=== PATIENT | female | born 1940 | race Caucasian/White ===

== ENCOUNTER 2020-06-03 17:14 | Inpatient (IN) | payer MEDICARE ==
[~2020-06-03] VITALS: Ht 157.5 cm; Wt 71.3 kg
[2020-06-03 17:49] LABS: BASOPHILS % (AUTO) 0.5 % (0.0-5.0); EOSINOPHILS % (AUTO) 0.1 % (0.0-8.0); HEMATOCRIT 41.1 % (36-48); LYMPHOCYTES % (AUTO) 42.6 % (21.0-51.0); MEAN CORPUSCULAR HGB CONC 33.1 g/dL (32.0-36.0); MEAN CORPUSCULAR VOLUME 90.5 fL (79-99); MONOCYTES % (AUTO) 5.7 % (3.0-13.0); NEUTROPHILS % (AUTO) 50.8 % (40.0-77.0); PLATELET COUNT (AUTO) 311 K/uL (130-400); RED BLOOD CELL COUNT(AUTO) 4.54 MIL/uL (4.00-5.50); RED CELL DISTRIBUTION WIDTH 11.9 % (11.0-15.5); WHITE BLOOD COUNT (AUTO) 10.1 K/uL (4.8-10.8)
[2020-06-03 17:52] LABS: CREATININE 1.1 mg/dL (0.5-1.5); POTASSIUM 3.4 mmol/L (3.5-5.1)
[2020-06-03 17:56] LABS: INR 0.91 (0.85-1.15); PARTIAL THROMBOPLASTIN TIME 23.8 SEC (26.3-35.5); PROTHROMBIN TIME 9.9 SEC (9.6-11.6)
[2020-06-03 17:57] LABS: ALBUMIN 3.9 g/dL (3.5-5.0); BILIRUBIN,TOTAL 0.4 mg/dL (0.2-1.0); TOTAL PROTEIN, SERUM 7.3 g/dL (6.0-8.3)
[2020-06-03] MEDS ORDERED: ALBUTEROL SULFATE 0.083% 2.5 MG/3 ML INH IH ONE (19:37)
[2020-06-03] MEDS ORDERED: ASPIRIN 325 MG TABLET ONE (19:46)
[2020-06-03] MEDS ORDERED: IOHEXOL-350 75 ML VIAL IV ONE (22:06)
[2020-06-04] MEDS ORDERED: ACETAMINOPHEN 325 MG TAB PO PRN ×2 (00:45)
[2020-06-04] MEDS ORDERED: ONDANSETRON HCL 4 MG/2 ML VIAL IV PRN (00:45)
[2020-06-04] MEDS ORDERED: MORPHINE SULFATE 2 MG/ML 1ML SYG IV PRN (00:45)
[2020-06-04] MEDS: SODIUM CHLORIDE 0.9% 1000ML 1,000 ML IV SCH ×3 (00:45→20:22)
[2020-06-04 03:46] LABS: HEMOGLOBIN A1C 5.8 % (4.0-6.0)
[2020-06-04 04:03] LABS: ALBUMIN 3.4 g/dL (3.5-5.0); BILIRUBIN,TOTAL 0.6 mg/dL (0.2-1.0); POTASSIUM 3.7 mmol/L (3.5-5.1); THYROID STIMULATING HORMONE 3.81 uIU/mL (0.36-3.74); TOTAL PROTEIN, SERUM 6.3 g/dL (6.0-8.3)
[2020-06-04 05:00] VITALS: BP 143/88
[2020-06-04 09:00] VITALS: BP 165/93
[2020-06-04] MEDS: ASPIRIN 81MG TAB.CHEW PO SCH (09:00)
[2020-06-04] MEDS: FAMOTIDINE/PF 20 MG/2 ML VIAL IV SCH ×2 (09:00→20:21)
[2020-06-04] MEDS: CLOPIDOGREL BISULFATE 75 MG TAB PO SCH (09:00)
[2020-06-04 12:46] VITALS: BP 160/80
[2020-06-04 13:13] LABS: CHOLESTEROL 140 mg/dL (<200); HDL CHOLESTEROL 61 mg/dL (35-85); LDL DIRECT 63 mg/dL (0-99); TRIGLYCERIDES 86 mg/dL (30-200)
[2020-06-04 17:34] VITALS: BP 164/94
[2020-06-04 19:46] VITALS: BP 143/77
[2020-06-04] MEDS: NIFEDIPINE 10 MG CAP PO SCH (20:21)
[2020-06-04] MEDS ORDERED: ATORVASTATIN CALCIUM 20 MG TABLET PO SCH (21:00)
[2020-06-04] MEDS ORDERED: ALPRAZOLAM 0.25 MG TABLET PO ONE (23:15)
[2020-06-04] MEDS: ALPRAZOLAM 0.25 MG TABLET ONE (23:26)
[2020-06-04 23:49] VITALS: BP 164/83
[2020-06-05] MEDS: ALPRAZOLAM 0.25 MG TABLET ONE (00:33)
[2020-06-05] MEDS ORDERED: ALPRAZOLAM 0.25 MG TABLET ONE (02:13)
[2020-06-05 04:07] VITALS: BP 129/71
[2020-06-05 04:33] LABS: BASOPHILS % (AUTO) 0.6 % (0.0-5.0); EOSINOPHILS % (AUTO) 2.6 % (0.0-8.0); LYMPHOCYTES % (AUTO) 30.5 % (21.0-51.0); MEAN CORPUSCULAR HEMOGLOBIN 30.1 pg (27.0-33.0); MEAN CORPUSCULAR HGB CONC 33.5 g/dL (32.0-36.0); MEAN CORPUSCULAR VOLUME 89.8 fL (79-99); MONOCYTES % (AUTO) 6.2 % (3.0-13.0); NEUTROPHILS % (AUTO) 59.8 % (40.0-77.0); PLATELET COUNT (AUTO) 267 K/uL (130-400); RED BLOOD CELL COUNT(AUTO) 4.12 MIL/uL (4.00-5.50); RED CELL DISTRIBUTION WIDTH 11.9 % (11.0-15.5); WHITE BLOOD COUNT (AUTO) 8.8 K/uL (4.8-10.8)
[2020-06-05 04:55] LABS: CRP QUANTITATIVE 3.5 mg/L (0.00-9.0); MAGNESIUM 1.4 mg/dL (1.80-2.40)
[2020-06-05 05:48] LABS: ERYTHROCYTE SEDIMENTATION RATE 5 MM/HR (0-30)
[2020-06-05] MEDS ORDERED: MAGNESIUM 2GM PREMIX 50ML 50 ML IV PRN (07:45)
[2020-06-05 08:41] LABS: POTASSIUM 3.6 mmol/L (3.5-5.1)
[2020-06-05] MEDS: FAMOTIDINE/PF 20 MG/2 ML VIAL IV SCH (10:11)
[2020-06-05] MEDS: ASPIRIN 81MG TAB.CHEW PO SCH (10:11)
[2020-06-05] MEDS: CLOPIDOGREL BISULFATE 75 MG TAB PO SCH (10:12)
[2020-06-05] MEDS: NIFEDIPINE 10 MG CAP PO SCH ×2 (10:12→13:01)
[2020-06-05] MEDS ORDERED: ATOR10 PO (17:23)
[2020-06-05] MEDS ORDERED: AMLO-257 PO (17:23)
[2020-06-05] MEDS ORDERED: ASPI-1005 PO (17:23)
== END 2020-06-05 18:30 | disposition home or self-care (01) | DRG 69 ==
LOC: EDH 17:14 → EDHIP 06-04 00:44 → 4AH 06-04 03:10 → 4DH 06-05 12:41
PROVIDERS: ADMIT Internal Medicine; ATTEND Internal Medicine
DX: G45.9 Transient cerebral ischemic attack, unspecified (principal); I10 Essential (primary) hypertension; E78.5 Hyperlipidemia, unspecified; R47.81 Slurred speech; I73.9 Peripheral vascular disease, unspecified; Z90.710 Acquired absence of both cervix and uterus
CPT/HCPCS: 36415; 70450; 70496; 70498; 70551; 80048; 80053; 80061; 82306; 82607; 82746; 83036; 83735; 84100; 84443; 85025; 85610; 85651; 85730; 86140; 92522; 92610; 93005; 93306; 93880; 97039; G0378; J3475; J3490; Q9967